=== PATIENT | male | born 1995 | race Caucasian/White ===

== ENCOUNTER 2023-08-13 17:57 | Emergency (ER) | payer OTHER, SELFPAY ==
[2023-08-13 17:59] VITALS: BP 194/107; PULSE 77; RESP 16; TEMP 36.6; O2SAT 96; BMI 46.0
--- NOTE | 2023-08-13 18:10 | ED_ITS ---
<Statement entered by Victorino Real MD - 08/13/23 22:29> I was consulted by the CLARISSA, and we discussed the complexity of the problems being addressed. I approved the treatment and management plan for this patient's care in the emergency department, thus performing a substantive portion of the medical decision making. Victorino Real MD, BRICE, FACEP Discharge Plan Disposition Patient Disposition: Home, Self-Care Condition: Good Prescriptions Prescriptions: New ondansetron 4 mg tablet,disintegrating 4 mg PO Q6H PRN (Reason: nausea and vomiting) Qty: 10 0RF No Action benzonatate [Tessalon Perles] 100 mg capsule 100 mg PO BID PRN (Reason: cough) Qty: 14 0RF montelukast [Singulair] 10 mg tablet 10 mg PO QPM Referrals Follow up/Referrals: Provider,Referral, [Referring] - See instructions Clinical Impressions Clinical Impression: Mononucleosis Qualifiers: Infectious mononucleosis etiology: unspecified organism Infectious mononucleosis complication: without complication Qualified Code(s): B27.90 - Infectious mononucleosis, unspecified without complication Nausea & vomiting Qualifiers: Vomiting type: unspecified Qualified Code(s): R11.2 - Nausea with vomiting, unspecified Instructions Patient Instructions: DI for Mononucleosis-Adult Discharge ED Provider: Victorino Real General Adult HPI General Chief complaint: Nausea/Vomiting/Diarrhea Stated complaint: vomiting Time Seen by Provider: 08/13/23 18:10 History of Present Illness HPI narrative: Patient presents for evaluation of nausea vomiting and loose stool. Patient states that he has had nausea and vomiting primarily in the morning for the last 2 weeks. He went to see his PCP who diagnosed him with lymphadenitis and put him on antibiotics however he is finished that and his symptoms have not improved neither has his swollen lymph node. Patient denies chest pain fever chills hemoptysis hematochezia melena and can tolerate oral intake and is able to eat still. Related Data Home Medications Medication Instructions Recorded Confirmed montelukast 10 mg tablet 10 mg PO QPM 07/06/18 07/06/18 (Singulair) Previous Rx's Medication Instructions Recorded benzonatate 100 mg capsule 100 mg PO BID PRN cough #14 caps 07/06/18 (Tessalon Perles) ondansetron 4 mg disintegrating 4 mg PO Q6H PRN nausea and 08/13/23 tablet vomiting #10 tabs Allergies Allergy/AdvReac Type Severity Reaction Status Date / Time amoxicillin [From Augmentin] Allergy Unknown Hives Verified 07/06/18 19:20 clavulanic acid Allergy Unknown Hives Verified 07/06/18 19:20 [From Augmentin] [facility] Disclaimer: The information contained in this section may have been updated after the patient was seen, as this information can be updated by other users. Social History Smoking Status: Never smoker alcohol intake: never current occupational status: unemployed Travel in the last 8 weeks: None household members: family housing: house ROS Obtained: Yes Systems reviewed as appropriate & no additional complaints except as documented Physical Exam General General appearance: alert and in no apparent distress ENT ENT exam: Present normal exam, normal oropharynx and mucous membranes moist Neck Neck exam: Present normal inspection, full ROM and lymphadenopathy (Positive bilateral lymphadenopathy of the neck) Respiratory Respiratory exam: Present normal lung sounds bilaterally Cardiovascular Cardiovascular exam: Present regular rate and normal rhythm Abdominal Exam Abdominal exam: Present soft, tenderness (Mild tenderness to palpation in the right lower quadrant) and normal bowel sounds; Absent distention, guarding or rebound Extremities Exam Extremities exam: Present normal inspection Back Exam Back exam: Present normal inspection and full ROM; Absent tenderness Neurological Exam Neurological exam: Present alert and oriented X3 Psychiatric Psychiatric exam: Present normal affect and normal mood Skin Skin exam: Present warm, dry and normal color Medical Decision Making Medical Records Medical records reviewed: Yes I reviewed the patient's medical records. Sal Inquiry Pt receiving controlled substance: No Vital Signs: 08/13/23 17:59 08/13/23 18:50 08/13/23 19:00 Temperature 97.9 F Temperature Source Oral Pulse Rate 70 61 Pulse Rate [Radial] 77 Respiratory Rate 16 18 Blood Pressure 156/99 H 147/85 H Blood Pressure [Right Arm] 194/107 H Blood Pressure Mean 118 Blood Pressure Mean [Right Arm] 136 Blood Pressure Source [Right Arm] Automatic Cuff Blood Pressure Position [Right Arm] Sitting 02 Sat by Pulse Oximetry 96 97 96 Oxygen Delivery Method Room Air Room Air Room Air 08/13/23 19:39 08/13/23 20:00 Temperature Temperature Source Pulse Rate 72 62 Pulse Rate [Radial] Respiratory Rate Blood Pressure 142/83 H 140/88 Blood Pressure [Right Arm] Blood Pressure Mean Blood Pressure Mean [Right Arm] Blood Pressure Source [Right Arm] Blood Pressure Position [Right Arm] 02 Sat by Pulse Oximetry 96 98 Oxygen Delivery Method Lab Data Lab results reviewed: Yes I reviewed the patient's lab results. Lab Results 08/13/23 18:28: WBC 6.8, RBC 5.23, Hgb 15.1, Hct 45.7, MCV 87.4, MCH 28.9, MCHC 33.1, RDW 14.6, Plt Count 196, MPV 8.0, Neut % (Auto) 28.4 L, Lymph % (Auto) 63.4 H, [place] % (Auto) 4.1, Eos % (Auto) 1.0, Baso % (Auto) 3.2 H, Neut # (Auto) 1.9, Lymph # (Auto) 4.3, [place] # (Auto) 0.3, Eos # (Auto) 0.1, Baso # (Auto) 0.2, Total Counted 100, Neutrophils % (Manual) 29 L, Lymphocytes % (Manual) 58 H, Atypical Lymphs % 11.0, Monocytes % (Manual) 1 L, Basophils % (Manual) 1.0, Platelet Estimate Normal, RBC Morphology Normal, Sodium 137, Potassium 3.9, Chloride 100, Carbon Dioxide 29, Anion Gap 11.9, BUN 16, Creatinine 0.80, Estimated Creat Clear 124, Estimated GFR 115, Est GFR ( Amer) 139, G lucose 109 H, Lactate 0.9, Calcium 8.9, Magnesium 1.9, Total Bilirubin 0.5, AST 102 H, ALT 140 H, Alkaline Phosphatase 100, Total Protein 7.3, Albumin 4.2, Globulin 3.1, Albumin/Globulin Ratio 1.4, Lipase 74, Procalcitonin 0.159, TSH 2.87, Monoscreen Positive A, HIV 1&2 Antibody Rapid Non reactive 08/13/23 18:28 08/13/23 18:28 Orders (Tests/Meds): ED MEDICATIONS Generic Name Dose Route Start Last Admin Trade Name Freq PRN Reason Stop Dose Admin Sodium Chloride 10 ml 08/13/23 18:33 08/13/23 18:34 Sodium Chloride 0.9% 10ml Syr (Rad Only) IV 09/12/23 18:32 10 ml NEEDED PRN Administration Maintain IV Site Discontinued Medications Generic Name Dose Route Start Last Admin Trade Name Freq PRN Reason Stop Dose Admin Acetaminophen 1,000 mg 08/13/23 18:18 08/13/23 18:31 Acetaminophen 1,000mg/100ml Vial IV 08/13/23 18:19 1,000 mg ONCE ONE Administration Lactated Ringer's 1,000 mls @ 999 mls/hr 08/13/23 18:18 08/13/23 18:29 Lactated Ringer's 1000 Ml Bag IV 08/13/23 19:18 999 mls/hr .Q1H1M ONE Administration Iopamidol 70 ml 08/13/23 18:33 08/13/23 18:34 Iopamidol-370 (76%);100ml Bottle IV 08/13/23 18:34 70 ml ONCE ONE Administration Ketorolac Tromethamine 15 mg 08/13/23 18:18 08/13/23 18:29 Ketorolac 30mg/Ml Vial IV 08/13/23 18:19 15 mg ONCE ONE Administration Ondansetron HCl 4 mg 08/13/23 18:32 08/13/23 18:44 Ondansetron 4mg/2ml Vial IV 08/13/23 18:33 4 mg ONCE ONE Administration ORDERS Category Date Time Status CT abdomen pelvis w con Stat Cat Scan 08/13/23 18:18 Completed CBC w/Auto Diff [Complete Blood Count Auto Diff] Stat Lab 08/13/23 18:28 Completed CMP [Comprehensive Metabolic Panel] Stat Lab 08/13/23 18:28 Completed HIV (1&2) Antibody Rapid Stat Lab 08/13/23 18:28 Completed Hepatitis Panel Routine Lab 08/13/23 19:29 Received Lactic Acid Stat Lab 08/13/23 18:28 Completed Lipase Stat Lab 08/13/23 18:28 Completed Magnesium Stat Lab 08/13/23 18:28 Completed Monoscreen (Rapid) Stat Lab 08/13/23 18:28 Completed Procalcitonin Stat Lab 08/13/23 18:28 Completed TSH [Thyroid Stimulating Hormone] Stat Lab 08/13/23 18:28 Completed Medical Decision Narrative: In summary patient is a 28-year-old male who presents to the emergency department for evaluation of nausea and vomiting. Patient is hemodynamically stable upon arrival, afebrile. Physical exam is remarkable only for mild tenderness to palpation in the right lower quadrant without rebound or guarding or rigidity. Bowel sounds are normal active.. Differential diagnosis includes gastroenteritis versus regional lymphadenitis versus other infectious disease versus blood dyscrasia etc. Initial workup will be conducted with hematologic labs CT scan abdomen pelvis. Initial interventions include fluid bolus Toradol Tylenol and Zofran. Initial workup reviewed by me shows that his white count is nonactionable and the remainder of his hematologic labs are nonactionable however he has significant elevation in his transaminases without hyperbilirubinemia therefore I have ordered a Monospot which subsequently was positive. My informal interpretation of CT scan abdomen pelvis shows no acute processes.. Upon repeat evaluation acceptable resolution of his nausea.. Given this appropriate for discharge with close follow-up with his PCP Critical Care Critical Care Time Critical Care Time: No
--- NOTE | 2023-08-13 18:18 | CT_ITS ---
PROCEDURE INFORMATION: Exam: CT Abdomen And Pelvis With Contrast Exam date and time: 08/13/2023 6:34 PM Age: 28 years old Clinical indication: Nausea and vomiting; Additional info: Nausea vomiting left lower quadrant abdominal pain TECHNIQUE: Imaging protocol: Computed tomography of the abdomen and pelvis with contrast. Radiation optimization: All CT scans at this facility use at least one of these dose optimization techniques: automated exposure control; mA and/or kV adjustment per patient size (includes targeted exams where dose is matched to clinical indication); or iterative reconstruction. Contrast material: ISOVUE; Contrast volume: 70 ml; Contrast route: IV; COMPARISON: 1. AGCHEST CT angio chest 06/08/2018 7:44 PM 2. CR CXR2V XR chest 2V 06/08/2018 6:12 PM FINDINGS: Liver: Normal. Gallbladder and biliary ducts: No acute process. Pancreas: Normal. Spleen: There are multiple calcifications in the spleen most likely reflects small granulomas. Adrenal glands: The adrenal glands appear normal. Kidneys and ureters: There are no soft tissue renal masses or hydronephrosis. Stomach and bowel: The stomach, small bowel, and colon are well-distended and show no evidence of wall thickening, masses, or obstruction. Appendix: No evidence of appendicitis. Intraperitoneal space: Unremarkable. Vasculature: The abdominal aorta and its major branches appear normal without evidence of aneurysm or stenosis. There are pelvic phleboliths. Lymph nodes: There are mildly prominent but nonenlarged and nonspecific retroperitoneal nodes. Mildly prominent nodes in the central mesentery, nonspecific. Urinary bladder: Unremarkable as visualized. Reproductive: No acute process. Bones/joints: The visualized osseous structures of the abdomen and pelvis appear normal for patient age. Soft tissues: Unremarkable. IMPRESSION: No acute inflammatory or obstructive process is identified. Incidental findings are described within the findings section.
[2023-08-13] MEDS: KETOROLAC 30MG/ML VIAL 15 MG IV (18:29)
[2023-08-13] MEDS: LACTATED RINGERS 1000ML 1,000 ML 999 ML IV (18:29)
[2023-08-13] MEDS: ACETAMINOPHEN 1,000MG/100ML VIAL 1000 MG IV (18:31)
[2023-08-13] MEDS: SODIUM CHLORIDE 0.9% 10ML SYR (RAD ONLY) 10 ML IV (18:34)
[2023-08-13] MEDS: IOPAMIDOL-370 (76%);100ML BOTTLE 70 ML IV (18:34)
[2023-08-13] MEDS: ONDANSETRON 4MG/2ML VIAL 4 MG IV (18:44)
[2023-08-13 18:48] LABS: Alanine Aminotransferase 140 U/L (12-78); Albumin Level 4.2 g/dl (3.5-5.0); Albumin/Globulin Ratio 1.4 (1.1-1.8); Alkaline Phosphatase 100 U/L (38-126); Anion Gap 11.9 mEq/L (5-15); Aspartate Amino Transferase 102 U/L (17-59); Bilirubin,Total 0.5 mg/dl (0.2-1.3); Blood Urea Nitrogen 16 mg/dl (9-20); Calcium 8.9 mg/dl (8.4-10.2); Carbon Dioxide 29 mmol/L (22.0-30.0); Chloride 100 mmol/L (98-107); Creatinine Clearance Estimated 124 mL/min (50-200); Estimated Glomerular Filt Rate 115 ml/min (>60); GFR (African American) 139 ML/MIN (>60); Globulin 3.1 g/dL (1.3-3.2); Glucose 109 mg/dl (74-100); Lactic Acid 0.9 mmol/L (0.7-2.1); Lipase 74 U/L (23-300); Magnesium 1.9 mg/dl (1.6-2.3); Potassium 3.9 mmoL/L (3.5-5.1); Sodium 137 mmol/L (136-145); Total Protein,Serum 7.3 g/dl (6.3-8.2)
[2023-08-13 18:49] LABS: Basophils # 0.2 K/mm3 (0-0.2); Basophils % 3.2 % (0.1-2.0); Eosinophils # 0.1 K/mm3 (0.0-0.4); Hematocrit 45.7 % (42.0-52.0); Hemoglobin 15.1 g/dL (14.1-18.0); Lymphocytes # 4.3 K/mm3 (0.7-4.5); Lymphocytes % 63.4 % (10-50); Mean Corpuscular HGB Conc 33.1 g/dL (31.8-35.4); Mean Corpuscular Hemoglobin 28.9 pg (27.0-31.2); Mean Corpuscular Volume 87.4 fl (80-94); Monocytes # 0.3 K/mm3 (0.1-1.0); Monocytes % 4.1 % (1.7-9.3); Neutrophils # 1.9 K/mm3 (1.8-7.8); Neutrophils % 28.4 % (37.0-80.0); Platelet Count 196 K/mm3 (142-424); Red Blood Count 5.23 M/mm3 (4.60-6.20); Red Cell Distribution Width 14.6 % (11.5-17.5); White Blood Count 6.8 K/mm3 (4.8-10.8)
[2023-08-13 18:50] VITALS: BP 156/99; PULSE 70; O2SAT 97
[2023-08-13 18:50] LABS: MANUAL DIFFERENTIAL MANUAL DIFFERENTIAL (MANUAL DIFF)
[2023-08-13 19:00] VITALS: BP 147/85; PULSE 61; RESP 18; O2SAT 96
[2023-08-13 19:06] LABS: HIV (1&2) Antibody Rapid NON REACTIVE
[2023-08-13 19:09] LABS: Procalcitonin 0.159 ng/mL (0.0-2.0)
[2023-08-13 19:18] LABS: Thyroid Stimulating Hormone 2.87 uIU/mL (0.465-4.68)
[2023-08-13 19:24] LABS: Lymphocytes % 58 % (10-50); Monocytes % 1 % (2-9); Neutrophils % 29 % (42-76); Total Cells Counted 100
[2023-08-13 19:25] LABS: Platelet Estimate Normal; RBC Morphology Normal
--- NOTE | 2023-08-13 19:27 | PC.NURSE ---
Rounded on patient no needs at this time
--- NOTE | 2023-08-13 19:29 | PC.NURSE ---
Patient awake speaking with visitor. No needs expressed at this time. Patient reports improvement of nausea symptoms. Additional blood drawn for lab orders at this time.
[2023-08-13 19:39] VITALS: BP 142/83; PULSE 72; O2SAT 96
[2023-08-13 19:46] LABS: Monoscreen (Rapid) Positive (Negative)
[2023-08-13 20:00] VITALS: BP 140/88; PULSE 62; O2SAT 98
[2023-08-13 21:09] VITALS: BP 140/85; PULSE 56; RESP 16; TEMP 36.8; O2SAT 97
[2023-08-15 09:45] LABS: HBsAg Screen Negative (Negative); HCV Ab Non Reactive (Non Reactive); Hep A Ab, IGM Negative (Negative); Hep B Core Ab, IgM Negative (Negative)
== END 2023-08-13 21:14 | disposition home or self-care (01) ==
PROVIDERS: Physician Assistant; Emergency Provider Student in an Organized Health Care Education/Training Program; PCP Pediatrics
DX: B27.90 Infectious mononucleosis, unspecified without complication (principal); R10.813 Right lower quadrant abdominal tenderness; R11.2 Nausea with vomiting, unspecified
CPT/HCPCS: 74177; 80053; 80074; 83605; 83690; 83735; 84145; 84443; 85007; 85025; 85027; 86318; 96361; 96374; 96375; 99285; J0131; J1885; J2405; J7120; Q9967

== ENCOUNTER 2023-10-05 09:13 | Emergency (ER) | payer OTHER, SELFPAY ==
[2023-10-05] VITALS (7 sets, daily range): BP systolic 112–144; BP diastolic 79–84; PULSE 58–75; RESP 14–16; TEMP 36.7–36.8; O2SAT 96–99; BMI 44.5
--- NOTE | 2023-10-05 09:20 | HMH.EDGENADL ---
Discharge Plan Disposition Patient Disposition: Home, Self-Care Condition: Good Prescriptions Prescriptions: New omeprazole 20 mg capsule,delayed release(DR/EC) 20 mg PO BID 10 Days Qty: 20 0RF No Action citalopram 10 mg tablet 10 mg PO DAILY levothyroxine 50 mcg tablet 50 mcg PO DAILY Descovy 200-25 mg tablet See Rx Instructions .ROUTE .COMPLEX Rx Instructions: 200-25 Referrals Follow up/Referrals: Provider,Referral, MD [Referring] - See instructions Activity Restrictions/Add. Instructions Additional Instructions/Restrictions: As we discussed, your labs show that your blood count is within normal range, and there is no evidence of infection on your CT scan or remainder of your labs. I have prescribed an acid reducing medication that I recommend you take 30 minutes to 1 hour before meals for short course to help your stomach heal from any irritation which caused the blood in your vomit. Please return with any new or worsening symptoms. Clinical Impressions Clinical Impression: Hematemesis Instructions Patient Instructions: DI for Acute Abdominal Pain Print Language Print Language: Cook Islander Discharge ED Provider: Graham Ramirez Adult HPI General Chief complaint: Abdominal Pain Stated complaint: throwing up blood, abd pain Time Seen by Provider: 10/05/23 09:20 History of Present Illness HPI narrative: The patient presents with a chief complaint of vomiting blood once this morning, describing it as feeling like throwing up razor blades. The patient reports feeling a little weak and more tired than usual upon waking up. They have not eaten today and woke up later than usual. The patient mentions having vomited yesterday as well. The patient has been experiencing right-sided belly pain, which started today. The pain is described as coming and going, with no apparent triggers or relation to meals. The patient denies any pain during palpation of the abdomen. They have a history of mononucleosis a couple of months ago, with whole stomach pain at that time. The patient denies any previous abdominal surgeries. The patient denies any pain during urination, in the side or back, and reports no fever. They mention tenderness in the right side of the abdomen, with the most severe pain located in the lower right quadrant. The patient denies any difficulty walking due to the pain. Additional details from the transcript: - The patient vomited blood once this morning, describing it as bright red. - They report feeling ticklish in their abdomen. - The patient had Garcia's yesterday and vomited after that as well. - They deny any recent contact sports. - The patient describes the pain as being more on the inside rather than during external palpation. Please note that above description of symptoms, in this electronic medical record under categorization of recalled from ER triage doctor by RN are reflective of an initial nursing assessment, however, is not reflective of my full history and physical exam that was personally taken and clarified. Consequentially, this preceding description of symptoms, which may include the patient's categorized chief complaint in the EMR, do not reflect my personal clinical impression, and the ultimate description of history of present illness and patient stated complaints should be deferred to this section of the note. Unless stated otherwise or congruent with this section of the note, additional signs, symptoms, or incongruence should be interpreted as inaccurate with my clinical impression. Related Data Home Medications ?Medication ?Instructions ?Recorded ?Confirmed citalopram 10 mg tablet 10 mg PO DAILY 10/05/23 10/05/23 emtricitabine 200 mg-tenofovir See Rx Instructions .Route .COMPLEX 10/05/23 10/05/23 alafenamide fumarate 25 mg tablet (Descovy) levothyroxine 50 mcg tablet 50 mcg PO DAILY 10/05/23 10/05/23 Previous Rx's ?Medication ?Instructions ?Recorded omeprazole 20 mg capsule,delayed 20 mg PO BID 10 days #20 caps 10/05/23 release Allergies Allergy/AdvReac Type Severity Reaction Status Date / Time amoxicillin [From Augmentin] Allergy Unknown Hives Verified 10/05/23 09:28 clavulanic acid Allergy Unknown Hives Verified 10/05/23 09:28 [From Augmentin] [facility] Disclaimer: The information contained in this section may have been updated after the patient was seen, as this information can be updated by other users. Social History Smoking Status: Never smoker alcohol intake: never current occupational status: unemployed Travel in the last 8 weeks: None household members: family housing: house ROS Obtained: Yes other As per HPI Physical Exam General General appearance: alert and in no apparent distress Head Head exam: atraumatic and normocephalic Eye Eye exam: Present normal appearance Neck Neck exam: Present normal inspection Chest Chest inspection: Present normal inspection and symmetric chest wall rise Respiratory Respiratory exam: Present normal lung sounds bilaterally; Absent respiratory distress Cardiovascular Cardiovascular exam: Present regular rate and normal rhythm Abdominal Exam Abdominal exam: Present soft and tenderness; Absent guarding, rebound or rigidity Abdominal tenderness: Present RLQ Neurological Exam Neurological exam: Present alert and oriented X3 Psychiatric Psychiatric exam: Present normal affect and normal mood Skin Skin exam: Present warm and dry Medical Decision Making Medical Records Medical records reviewed: Yes I reviewed the patient's medical records. Sal Inquiry Pt receiving controlled substance: No Vital Signs: 10/05/23 09:21 10/05/23 09:28 10/05/23 09:30 Temperature 98.2 F Temperature Source Oral Pulse Rate 75 66 Pulse Rate [Left] 74 Respiratory Rate 14 Blood Pressure 144/83 H 112/84 Blood Pressure [Right Arm] 144/83 H Blood Pressure Mean [Right Arm] 103 Blood Pressure Source [Right Arm] Automatic Cuff Blood Pressure Position [Right Arm] Sitting 02 Sat by Pulse Oximetry 97 96 97 Oxygen Delivery Method Room Air 10/05/23 11:08 10/05/23 11:30 10/05/23 12:03 Temperature 98.0 F Temperature Source Pulse Rate 59 L 58 L 58 L Pulse Rate [Left] Respiratory Rate 16 Blood Pressure 123/79 124/79 124/79 Blood Pressure [Right Arm] Blood Pressure Mean [Right Arm] Blood Pressure Source [Right Arm] Blood Pressure Position [Right Arm] 02 Sat by Pulse Oximetry 98 97 Oxygen Delivery Method 10/05/23 12:04 Temperature 98.2 F Temperature Source Pulse Rate 72 Pulse Rate [Left] Respiratory Rate 16 Blood Pressure 124/79 Blood Pressure [Right Arm] Blood Pressure Mean [Right Arm] Blood Pressure Source [Right Arm] Blood Pressure Position [Right Arm] 02 Sat by Pulse Oximetry Oxygen Delivery Method Room Air Lab Data Lab Results 10/05/23 09:19: Urine Color Yellow, Urine Appearance Clear, Urine pH 7.0, Ur Specific [place] 1.010, Urine Protein Negative, Urine Glucose (UA) Negative, Urine Ketones Negative, Urine Blood Negative, Urine Nitrate Negative, Urine Bilirubin Negative, Urine Urobilinogen 0.2, Ur Leukocyte Esterase Negative, Urine RBC None, Urine WBC None, Ur Squamous Epith Cells None, Urine Bacteria None 10/05/23 09:48: WBC 7.1, RBC 5.32, Hgb 15.7, Hct 48.7, MCV 91.7, MCH 29.5, MCHC 32.2, RDW 14.9, Plt Count 261, MPV 7.2 L, Neut % (Auto) 69.5, Lymph % (Auto) 22.4, [place] % (Auto) 4.9, Eos % (Auto) 2.3, Baso % (Auto) 0.9, Neut # (Auto) 4.9, Lymph # (Auto) 1.6, [place] # (Auto) 0.4, Eos # (Auto) 0.2, Baso # (Auto) 0.1, Sodium 137, Potassium 4.2, Chloride 107, Carbon Dioxide 25, Anion Gap 9.2, BUN 11, Creatinine 0.60 L, Estimated Creat Clear 165, Estimated GFR 160, Est GFR ( Amer) 194, Glucose 95, Calcium 9.0, Total Bilirubin 0.9, AST 37, ALT 31, Alkaline Phosphatase 67, Total Protein 7.4, Albumin 4.3, Globulin 3.1, Albumin/Globulin Ratio 1.4, Lipase 51 10/05/23 09:48 10/05/23 09:48 Orders (Tests/Meds): ED MEDICATIONS Discontinued Medications Generic Name Dose Route Start Last Admin Trade Name Freq PRN Reason Stop Dose Admin Iopamidol 75 ml 10/05/23 10:00 10/05/23 10:05 Iopamidol-370 (76%);100ml Bottle IV 10/05/23 10:01 75 ml ONCE ONE Administration Sodium Chloride 10 ml 10/05/23 10:00 10/05/23 10:05 Sodium Chloride 0.9% 10ml Syr (Rad Only) IV 10/05/23 10:01 10 ml ONCE ONE Administration ORDERS Category Date Time Status CT abdomen pelvis w con Stat Cat Scan 10/05/23 09:52 Completed CBC w/Auto Diff [Complete Blood Count Auto Diff] Stat Lab 10/05/23 09:48 Completed CMP [Comprehensive Metabolic Panel] Stat Lab 10/05/23 09:48 Completed Lipase Stat Lab 10/05/23 09:48 Completed Urinalysis and Microscopic Stat Lab 10/05/23 09:19 Completed Medical Decision Narrative: Patient with history and exam per above presenting for evaluation of abdominal pain, small amount hematemesis Diagnoses considered include appendicitis, Peri-Rock tear, PUD, no evidence clinically of esophageal perforation, no evidence of lower GI bleed. ED workup and treatment included: ED MEDICATIONS Discontinued Medications Generic Name Dose Route Start Last Admin Trade Name Adelina PRN Reason Stop Dose Admin Iopamidol 75 ml 10/05/23 10:00 10/05/23 10:05 Iopamidol-370 (76%);100ml Bottle IV 10/05/23 10:01 75 ml ONCE ONE Administration Sodium Chloride 10 ml 10/05/23 10:00 10/05/23 10:05 Sodium Chloride 0.9% 10ml Syr (Rad Only) IV 10/05/23 10:01 10 ml ONCE ONE Administration ORDERS Category Date Time Status CT abdomen pelvis w con Stat Cat Scan 10/05/23 09:52 Completed CBC w/Auto Diff [Complete Blood Count Auto Diff] Stat Lab 10/05/23 09:48 Completed CMP [Comprehensive Metabolic Panel] Stat Lab 10/05/23 09:48 Completed Lipase Stat Lab 10/05/23 09:48 Completed Urinalysis and Microscopic Stat Lab 10/05/23 09:19 Completed Labs were independently interpreted by me, significant for no acute findings Imaging was independently visualized and interpreted by me, significant for no acute findings. Please refer to radiology report for full details. My clinical impression at this time is most consistent with enteritis, with small amount of hematemesis, since resolved. Patient is asymptomatic at this time. I discussed my clinical impression with patient and answered all questions. At this time, the evidence for any other entities in the differential is insufficient to warrant any further testing or ED observation. This was explained to the patient. The patient was advised that persistent or worsening symptoms require further evaluation. Critical Care Critical Care Time Critical Care Time: No
--- NOTE | 2023-10-05 09:52 | CT_ITS ---
FINAL REPORT TECHNIQUE: After the administration of oral and intravenous contrast, axial images were obtained through the abdomen and pelvis by computed tomography. The study was performed with techniques to keep radiation dose as low as reasonably achievable, (ALARA). Individual dose reduction techniques using automated exposure control or adjustment of mA and/or kV according to the patient's size were employed. CLINICAL HISTORY: RLQ abdominal pain, n/v COMPARISON: 08/13/2023 FINDINGS: Abdomen: The lung bases are clear. There is mild fatty infiltration of the liver. The gallbladder is present. The spleen, pancreas, adrenals and kidneys appear unremarkable. The aorta is normal in caliber. There is no free fluid or adenopathy. Pelvis: The appendix is not identified. The urinary bladder is incompletely distended. There is no free fluid or adenopathy. IMPRESSION: No acute intra-abdominal process. Mild fatty infiltration of the liver. Reviewed, Interpreted and Dictated by Riaz Ceron MD Transcribed by Inessa Rodriguez Authenticated and . [facility]
[2023-10-05 09:58] LABS: Microscopic, Urine URINE MICROSCOPIC (MICROSCOPIC)
[2023-10-05 10:01] LABS: Albumin Level 4.3 g/dl (3.5-5.0); Chloride 107 mmol/L (98-107); Potassium 4.2 mmoL/L (3.5-5.1); Sodium 137 mmol/L (136-145)
[2023-10-05 10:03] LABS: Appearance,Urine CLEAR (Clear); Bilirubin,Urine Negative (Negative); Blood, Urine Negative (Negative); Color,Urine YELLOW (Yellow); Glucose,Urine (UA) Negative (Negative); Ketones,Urine Negative (Negative); Leukocyte Esterase,Urine Negative (Negative); Nitrate,Urine Negative (Negative); Protein,Urine Negative (Negative); Urobilinogen,Urine 0.2 EU/dl (0.2)
[2023-10-05 10:04] LABS: Alanine Aminotransferase 31 U/L (12-78); Albumin/Globulin Ratio 1.4 (1.1-1.8); Alkaline Phosphatase 67 U/L (38-126); Anion Gap 9.2 mEq/L (5-15); Aspartate Amino Transferase 37 U/L (17-59); Basophils # 0.1 K/mm3 (0-0.2); Basophils % 0.9 % (0.1-2.0); Bilirubin,Total 0.9 mg/dl (0.2-1.3); Blood Urea Nitrogen 11 mg/dl (9-20); Carbon Dioxide 25 mmol/L (22.0-30.0); Creatinine Clearance Estimated 165 mL/min (50-200); Eosinophils # 0.2 K/mm3 (0.0-0.4); Eosinophils % 2.3 % (0.1-12.0); Estimated Glomerular Filt Rate 160 ml/min (>60); GFR (African American) 194 ML/MIN (>60); Globulin 3.1 g/dL (1.3-3.2); Hematocrit 48.7 % (42.0-52.0); Hemoglobin 15.7 g/dL (14.1-18.0); Lipase 51 U/L (23-300); Lymphocytes # 1.6 K/mm3 (0.7-4.5); Lymphocytes % 22.4 % (10-50); Mean Corpuscular HGB Conc 32.2 g/dL (31.8-35.4); Mean Corpuscular Hemoglobin 29.5 pg (27.0-31.2); Mean Corpuscular Volume 91.7 fl (80-94); Mean Platelet Volume 7.2 fl (7.4-10.4); Monocytes # 0.4 K/mm3 (0.1-1.0); Monocytes % 4.9 % (1.7-9.3); Neutrophils # 4.9 K/mm3 (1.8-7.8); Neutrophils % 69.5 % (37.0-80.0); Platelet Count 261 K/mm3 (142-424); Red Blood Count 5.32 M/mm3 (4.60-6.20); Red Cell Distribution Width 14.9 % (11.5-17.5); Total Protein,Serum 7.4 g/dl (6.3-8.2); White Blood Count 7.1 K/mm3 (4.8-10.8)
[2023-10-05 10:05] LABS: Glucose 95 mg/dl (74-100)
[2023-10-05] MEDS: SODIUM CHLORIDE 0.9% 10ML SYR (RAD ONLY) 10 ML IV (10:05)
[2023-10-05] MEDS: IOPAMIDOL-370 (76%);100ML BOTTLE 75 ML IV (10:05)
== END 2023-10-05 12:04 | disposition home or self-care (01) ==
PROVIDERS: Emergency Provider Emergency Medicine; PCP Pediatrics
DX: K92.0 Hematemesis (principal); R10.31 Right lower quadrant pain
CPT/HCPCS: 74177; 80053; 81001; 83690; 85025; 99284; Q9967

== ENCOUNTER 2024-05-15 16:09 | Emergency (ER) | payer OTHER, SELFPAY ==
[2024-05-15 16:17] VITALS: BP 138/87; PULSE 78; RESP 14; TEMP 36.9; O2SAT 98; BMI 43.5
--- NOTE | 2024-05-15 16:33 | XR_ITS ---
PROCEDURE INFORMATION: Exam: XR Left Knee Exam date and time: 05/15/2024 4:35 PM Age: 29 years old Clinical indication: Pain; Knee; Left; Additional info: Fall TECHNIQUE: Imaging protocol: Radiologic exam of the left knee. Views: 3 views. COMPARISON: No relevant prior studies available. FINDINGS: Bones/joints: Normal anatomic alignment. The bone density is normal for this patient's age. No acutely displaced fractures. No joint dislocation. No aggressive osseous lesions. Small suprapatellar effusion. Soft tissues: There is no significant soft tissue swelling. IMPRESSION: 1. No acute skeletal pathology. 2. Small suprapatellar effusion.
--- NOTE | 2024-05-15 16:34 | HMH.EDGENADL ---
Discharge Plan Disposition Patient Disposition: Home, Self-Care Condition: Good Prescriptions Prescriptions: No Action citalopram 10 mg tablet 10 mg PO DAILY levothyroxine 50 mcg tablet 50 mcg PO DAILY Descovy 200-25 mg tablet See Rx Instructions .ROUTE .COMPLEX Rx Instructions: 200-25 omeprazole 20 mg capsule,delayed release(DR/EC) 20 mg PO BID 10 Days Qty: 20 0RF Referrals Follow up/Referrals: Robert Garduno [Primary Care Provider] - See instructions Elvin Larson DO [Staff Physician] - See instructions Activity Restrictions/Add. Instructions Additional Instructions/Restrictions: Today you were evaluated in the emergency department after a fall and injury on your left knee. Please wear the Taz wrap for 7 days, rest, ice, use compression and elevate the left lower extremity. Please follow-up with orthopedics if left knee pain has not improved after 1 week. You may also use acetaminophen and ibuprofen [id number] for symptomatic relief. During the next week, no running, jumping or heavy squatting. Return to the emergency department for worsening of condition. Clinical Impressions Clinical Impression: Left knee sprain Qualifiers: Encounter type: initial encounter Involved ligament of knee: unspecified ligament Qualified Code(s): S83.92XA - Sprain of unspecified site of left knee, initial encounter Stand Alone Forms Stand Alone Forms: Work/School Release Instructions Patient Instructions: DI for Knee Pain Print Language Print Language: Mohawk Discharge ED Provider: Neo Martinez General Adult HPI <Sarita Peguero APRN - Last Filed: 05/15/24 18:44> General Chief complaint: PAIN Stated complaint: AO 4-2 left knee pain Time Seen by Provider: 05/15/24 16:30 Mode of Arrival: Wheelchair Source of Information: Patient Description of Symptoms (Recalled from ER Triage Doc. by RN): patient was at work and slipped on wet floor falling twisting his left leg, the knee is where his pain is at. 5/10 hurts worse with movement. History of Present Illness HPI narrative: patient is a 29-year-old male with denies any significant PMHx presents to the ED after a fall that occurred at work today. Patient states he was standing at the sink when he turned, losing his footing, twisting his left knee but states most of his fall was onto his buttocks. Related Data Home Medications ?Medication ?Instructions ?Recorded ?Confirmed citalopram 10 mg tablet 10 mg PO DAILY 10/05/23 10/05/23 emtricitabine 200 mg-tenofovir See Rx Instructions .Route .COMPLEX 10/05/23 10/05/23 alafenamide fumarate 25 mg tablet (Descovy) levothyroxine 50 mcg tablet 50 mcg PO DAILY 10/05/23 10/05/23 Previous Rx's ?Medication ?Instructions ?Recorded omeprazole 20 mg capsule,delayed 20 mg PO BID 10 days #20 caps 10/05/23 release Allergies Allergy/AdvReac Type Severity Reaction Status Date / Time amoxicillin (From Augmentin) Allergy Unknown Hives Verified 10/05/23 09:28 clavulanic acid (From Allergy Unknown Hives Verified 10/05/23 09:28 Augmentin) [facility] <Sarita Peguero APRN - Last Filed: 05/15/24 18:44> [facility] Disclaimer: The information contained in this section may have been updated after the patient was seen, as this information can be updated by other users. Social History Smoking Status: Never smoker alcohol intake: never current occupational status: unemployed Travel in the last 8 weeks: None household members: family housing: house Have you lived/traveled outside [place] in past 30 days?: No Contact w/someone who lives/traveled outside [place] past 30 days?: No Exposure to someone with infectious disease in past 14 days?: No Do you have a fever (greater than 100.4 F or 38 C)?: No Have you tested positive for COVID-19: No Exposed to someone with COVID-19 in past 14 days?: No Do you have a sore throat?: No Do you have a cough?: No Do you have any weakness?: No Do you have any diarrhea?: No Are you experiencing any unusual bleeding?: No Do you have any muscle aches/pain?: No Do you have any abdominal pain?: No Are you experiencing loss of taste or smell?: No Other Medical History Have you received the Pneumonia Vaccine: No <Sarita Peguero APRN - Last Filed: 05/15/24 18:44> ROS Obtained: Yes Systems reviewed as appropriate & no additional complaints except as documented Physical Exam <Sarita Peguero APRN - Last Filed: 05/15/24 18:44> General General appearance: alert and in no apparent distress Head Head exam: atraumatic and normocephalic Eye Eye exam: Present normal appearance and PERRL ENT ENT exam: Present normal exam Neck Neck exam: Present normal inspection Chest Chest inspection: Present normal inspection and symmetric chest wall rise; Absent tenderness Respiratory Respiratory exam: Present normal lung sounds bilaterally Cardiovascular Cardiovascular exam: Present regular rate Abdominal Exam Abdominal exam: Present soft and normal bowel sounds; Absent tenderness Extremities Exam Extremities exam: Present full ROM and tenderness (L knee medial tenderness, Left knee posterior tenderness) Back Exam Back exam: Present normal inspection and full ROM Neurological Exam Neurological exam: Present alert and oriented X3 Psychiatric Psychiatric exam: Present normal affect and normal mood Skin Skin exam: Present warm and dry Medical Decision Making <Sarita Peguero APRN - Last Filed: 05/15/24 18:44> Medical Records Screening: Per USPSTF and CDC recommendations, given the prevalence of disease in our region, it is our hospital?s policy to screen for HIV and viral Hepatitis for all patients aged 18 and over and those with ongoing risk factors. Sal Inquiry Pt receiving controlled substance: No Vital Signs: 05/15/24 16:17 05/15/24 17:27 Temperature 98.4 F 98.4 F Temperature Source Oral Pulse Rate 81 Pulse Rate [Right] 78 Respiratory Rate 14 16 Blood Pressure 131/85 Blood Pressure [Right Arm] 138/87 Blood Pressure Mean [Right Arm] 104 Blood Pressure Source [Right Arm] Automatic Cuff Blood Pressure Position [Right Arm] Sitting 02 Sat by Pulse Oximetry 98 Oxygen Delivery Method Room Air Orders (Tests/Meds): ORDERS Category Date Time Status Knee XR left 3 views [XR knee LT 3V] Stat Exams 05/15/24 16:33 Completed Medical Decision Narrative: In summary, patient is a 29-year-old male with denies any significant PMHx presents to the ED after a fall that occurred at work today. Patient states he was standing at the sink when he turned, losing his footing, twisting his left knee but states most of his fall was onto his buttocks. Patient states that he is having medial left knee pain, is ambulatory. Denies taking any medication prior to arrival for symptomatic relief. Denies any previous injury of this knee. Denies any additional complaints at this time. Did not hit his head, did not lose consciousness. Denies fever, chills, body aches, headache, chest pain, shortness of breath, abdominal pain. Upon initial evaluation patient is alert, oriented and cooperative. He is stable. He is obese. He has left knee medial and posterior tenderness. Quadricep muscle is intact. Patella midline. Discussed with patient that we will proceed with x-ray of the left knee. Patient declined acetaminophen or ibuprofen. X-ray unremarkable for any acute findings. Discussed with patient that he may have a sprain of his knee, we will apply Taz wrap and he can wear that for 1 week. Discussed with patient that he will need to follow-up with orthopedics if his pain persist past 1 week and is not improving. I discussed he will need to rest, ice, elevate and use compression for 1 week. No heavy lifting, heavy squatting or running or jumping. We discussed return precautions to the ED. Patient verbalized understanding. He was hemodynamically stable and ambulatory without difficulty from the ED. <Neo Martinez MD - Last Filed: 05/15/24 18:52> Vital Signs: 05/15/24 16:17 05/15/24 17:27 Temperature 98.4 F 98.4 F Temperature Source Oral Pulse Rate 81 Pulse Rate [Right] 78 Respiratory Rate 14 16 Blood Pressure 131/85 Blood Pressure [Right Arm] 138/87 Blood Pressure Mean [Right Arm] 104 Blood Pressure Source [Right Arm] Automatic Cuff Blood Pressure Position [Right Arm] Sitting 02 Sat by Pulse Oximetry 98 Oxygen Delivery Method Room Air Orders (Tests/Meds): ORDERS Category Date Time Status Knee XR left 3 views [XR knee LT 3V] Stat Exams 05/15/24 16:33 Completed Medical Decision Narrative: In summary, patient is a 29-year-old male with denies any significant PMHx presents to the ED after a fall that occurred at work today. Patient states he was standing at the sink when he turned, losing his footing, twisting his left knee but states most of his fall was onto his buttocks. Patient states that he is having medial left knee pain, is ambulatory. Denies taking any medication prior to arrival for symptomatic relief. Denies any previous injury of this knee. Denies any additional complaints at this time. Did not hit his head, did not lose consciousness. Denies fever, chills, body aches, headache, chest pain, shortness of breath, abdominal pain. Upon initial evaluation patient is alert, oriented and cooperative. He is stable. He is obese. He has left knee medial and posterior tenderness. Quadricep muscle is intact. Patella midline. Discussed with patient that we will proceed with x-ray of the left knee. Patient declined acetaminophen or ibuprofen. X-ray unremarkable for any acute findings. Discussed with patient that he may have a sprain of his knee, we will apply Taz wrap and he can wear that for 1 week. Discussed with patient that he will need to follow-up with orthopedics if his pain persist past 1 week and is not improving. I discussed he will need to rest, ice, elevate and use compression for 1 week. No heavy lifting, heavy squatting or running or jumping. We discussed return precautions to the ED. Patient verbalized understanding. He was hemodynamically stable and ambulatory without difficulty from the ED. I was consulted by the CLARISSA, and we discussed the complexity of the problems being addressed. I approved the treatment and management plan for this patient's care in the emergency department, thus performing a substantive portion of the medical decision making. Neo Martinez MD Critical Care <Sarita Peguero APRN - Last Filed: 05/15/24 18:44> Critical Care Time Critical Care Time: No
[2024-05-15 17:27] VITALS: BP 131/85; PULSE 81; RESP 16; TEMP 36.9; O2SAT 100
== END 2024-05-15 17:33 | disposition home or self-care (01) ==
PROVIDERS: Emergency Provider Emergency Medicine; PCP Pediatrics
DX: S83.92XA Sprain of unspecified site of left knee, initial encounter (principal); M25.562 Pain in left knee; W01.0XXA Fall on same level from slipping, tripping and stumbling without subsequent striking against object, initial encounter; Y93.89 Activity, other specified; Y92.89 Other specified places as the place of occurrence of the external cause
CPT/HCPCS: 73562; 99283